=== PATIENT | male | born 1985 | race Caucasian/White ===

== ENCOUNTER 2018-07-09 21:10 | Emergency (ER) | payer MEDICAID ==
[~2018-07-09] VITALS: Ht 162.6 cm; Wt 44.0 kg
[2018-07-09 21:30] VITALS: BP 115/81; Ht 162.6 cm; Wt 44.0 kg
== END 2018-07-09 23:33 | disposition home or self-care (01) ==
LOC: ED 21:10
DX: D17.0 Benign lipomatous neoplasm of skin and subcutaneous tissue of head, face and neck (principal); G44.209 Tension-type headache, unspecified, not intractable

== ENCOUNTER 2020-07-13 11:57 | Emergency (ER) | payer MEDICAID ==
[~2020-07-13] VITALS: Ht 170.2 cm; Wt 48.1 kg
[2020-07-13 12:30] VITALS: Ht 170.2 cm; Wt 48.1 kg
[2020-07-13 16:05] VITALS: BP 112/61
== END 2020-07-13 16:05 | disposition home or self-care (01) ==
LOC: ED 11:57
DX: S90.32XA Contusion of left foot, initial encounter (principal); S61.432A Puncture wound without foreign body of left hand, initial encounter; W26.0XXA Contact with knife, initial encounter; Y93.89 Activity, other specified; Y92.89 Other specified places as the place of occurrence of the external cause; Y99.8 Other external cause status
CPT/HCPCS: 90715; Q0092